=== PATIENT | female | born 1950 | race Caucasian/White ===

== ENCOUNTER → 2017-11-19 | Emergency (ER) | payer OTHER ==
[~2017-11-19] VITALS: Ht 162.6 cm; Wt 86.2 kg
[~2017-11-19] MED LIST: ASA81 MG PO; CIPRO500 MG PO; COUMADIN5 MG; FLAGYL500MG PO; LOSARTAN-HCTZ1 EAC1; ZANTAC300 MG PO
== END | disposition home or self-care (01) ==
LOC: ER 17:27
DX: K29.70 Gastritis, unspecified, without bleeding (principal)

== ENCOUNTER 2019-04-18 08:32 | Emergency (ER) | payer OTHER ==
[~2019-04-18] VITALS: Ht 162.6 cm; Wt 78.0 kg
[2019-04-18] MEDS ORDERED: FORTAMET1000 MG (09:21)
[2019-04-18] MEDS ORDERED: ASPIR 8181 MG (09:21)
[2019-04-18] MEDS ORDERED: HUMULIN N100 UNIT/2 (09:21)
[2019-04-18] MEDS ORDERED: TOPROL XL50 M1 (09:21)
[2019-04-18] MEDS ORDERED: XOLEGEL45 GM TOP (10:57)
[2019-04-18] MEDS ORDERED: CORTIZONE 1028 GM TOP (10:57)
== END 2019-04-18 11:04 | disposition home or self-care (01) ==
LOC: ER 08:32
DX: R60.0 Localized edema (principal); N18.9 Chronic kidney disease, unspecified; R21 Rash and other nonspecific skin eruption

== ENCOUNTER 2022-07-25 06:23 | Inpatient (IN) | payer OTHER ==
[~2022-07-25] VITALS: Ht 165.1 cm; Wt 81.2 kg
[~2022-07-25 06:23] MED LIST changes: +AMLODIPINE BESYL5 MG PO; +ASPIR 8181 MG; +CORTIZONE 1028 GM TOP; +ELIQUIS5 MG PO; +FORTAMET1000 MG; +HUMULIN N100 UNIT/2; +ISOSORBIDE MONO30 MG PO; +JENTADUETO 2.51 EAC2 PO; +LANTUS SOL100 UNIT/1 SQ; +LOSARTAN POTAS100 MG PO; +METOPROLOL TAR100 MG PO; +SPIRONOLACTONE25 MG PO; +TOPROL XL50 M1; +XOLEGEL45 GM TOP; +ZOCOR20 MG PO
[2022-07-25] MEDS ORDERED: HUMULIN 70100 UNIT/2 (16:41)
[2022-07-25] MEDS ORDERED: TORSEMIDE20 MG (16:41)
[2022-07-25] MEDS ORDERED: GABAPENTIN800 M1 (16:41)
[2022-07-25] MEDS ORDERED: ATORVASTATIN CA20 MG (16:41)
[2022-07-25] MEDS ORDERED: ALLOPURINOL100 MG (16:41)
[2022-07-25] MEDS ORDERED: CLOPIDOGREL BIS75 MG (16:41)
[2022-07-25] MEDS ORDERED: FUROSEMIDE40 MG (16:41)
[2022-07-25] MEDS ORDERED: NIFEDIPINE ER30 MG (16:41)
[2022-07-25] MEDS ORDERED: OMEPRAZOLE40 MG (16:41)
== END 2022-07-31 17:59 | disposition home or self-care (01) | DRG 389 ==
LOC: ER 06:23 → SEC-K 15:33 → MEDI 15:33
PROVIDERS: ADMIT Internal Medicine; ATTEND Internal Medicine
PROC: 0D9670Z Drainage of Stomach with Drainage Device, Via Natural or Artificial Opening (ICD-10-PCS; principal; 2022-07-25)
PROC: BW2110Z Computerized Tomography (CT Scan) of Abdomen and Pelvis using Low Osmolar Contrast, Unenhanced and Enhanced (ICD-10-PCS; 2022-07-25)
PROC: 02HV33Z Insertion of Infusion Device into Superior Vena Cava, Percutaneous Approach (ICD-10-PCS; 2022-07-30)
DX: K56.600 Partial intestinal obstruction, unspecified as to cause (principal); N17.9 Acute kidney failure, unspecified; R18.8 Other ascites; I12.9 Hypertensive chronic kidney disease with stage 1 through stage 4 chronic kidney disease, or unspecified chronic kidney disease; E11.22 Type 2 diabetes mellitus with diabetic chronic kidney disease; N18.9 Chronic kidney disease, unspecified; E86.0 Dehydration; I48.91 Unspecified atrial fibrillation

== ENCOUNTER 2022-10-24 13:42 | Inpatient (IN) | payer OTHER ==
[~2022-10-24] VITALS: Ht 157.5 cm; Wt 77.1 kg
[~2022-10-24 13:42] MED LIST changes: +ALLOPURINOL100 MG; +ATORVASTATIN CA20 MG; +CLOPIDOGREL BIS75 MG; +FUROSEMIDE40 MG; +GABAPENTIN800 M1; +HUMULIN 70100 UNIT/2; +NIFEDIPINE ER30 MG; +OMEPRAZOLE40 MG; +TORSEMIDE20 MG
--- NOTE | 2022-10-24 13:53 | NUR ---
PACIENTE LLEGA BRAD DE EMERGENCIAS POR DIFICULTAD AL RESPIRAR Y DOLOR DE PECHO, SE LE REALIZA EKG Y SIGNOS VITALES, PRESENTA SATURACION EN 88%.
--- NOTE | 2022-10-24 14:18 | NUR ---
PACIENTE ES MANEJADA EN AREA DE CHESTA PAIN DE MANERA INMEDIATA. PACIENTE AL MOMENTO ES CONECTADA A MONITOR CARDIACO OXIMETRIA DE PUSLO, SE REALIZA CANALIZACIONDE VENA CON ANGIO NEMERO 20#. PACIENTE CON SALIN LOCK, CANULA DE OXIGENO, SE REALIZO INSERCION DE SAMSON CATETER Y SE REALIZARON GASES ALTERIALES.
--- NOTE | 2022-10-24 15:04 | NUR ---
1500 SE RECIBE PTE ALERTA Y ORIENTADA EN COMPANIA DE FAMILIAR, PTE RESPONDE A ESTIMULO DE DOLOR AL MOMENTO SE ENCUENTRA EN POSICION SEMIFOWLER. PTE TIENE UN BIPAD PIP14 FIO2 100% MAP 9.7. PTE VENOPUNCION #20 BRAZO ARNIE CON SALIN LOCK. SE OBSERVAN AMBAS EXTREMIDADES DE [place] EDEMATOSAS Y AMBAS EXTREMIDADES DE [place] HINCHADO. SE OBSERVA ESTOMAGO DEPRESIBLE Y BLANDO A TACTO. PTE AL MOMENTO TIENE SAMSON AL MOMENTO ESTA DRENANDO AMARILLO INTENSO 20ML. 1517: SE NOTIFICA VALOR PANICO DE TROPONINAS DE [address] WEAVER.
== END 2022-11-03 17:25 | disposition home or self-care (01) | DRG 280 ==
LOC: ER 13:42 → ICU-2 18:24 → MEDI 10-28 16:59
PROVIDERS: ADMIT Internal Medicine; ATTEND Internal Medicine
PROC: 5A09457 Assistance with Respiratory Ventilation, 24-96 Consecutive Hours, Continuous Positive Airway Pressure (ICD-10-PCS; principal; 2022-10-24)
PROC: 4A12X4Z Monitoring of Cardiac Electrical Activity, External Approach (ICD-10-PCS; 2022-10-24)
PROC: B24BYZZ Ultrasonography of Heart with Aorta using Other Contrast (ICD-10-PCS; 2022-10-24)
PROC: 3E0F7SF Introduction of Other Gas into Respiratory Tract, Via Natural or Artificial Opening (ICD-10-PCS; 2022-10-26)
PROC: 5A0945A Assistance with Respiratory Ventilation, 24-96 Consecutive Hours, High Flow/Velocity Cannula (ICD-10-PCS; 2022-10-28)
PROC: 30233N1 Transfusion of Nonautologous Red Blood Cells into Peripheral Vein, Percutaneous Approach (ICD-10-PCS; 2022-11-01)
DX: I13.0 Hypertensive heart and chronic kidney disease with heart failure and stage 1 through stage 4 chronic kidney disease, or unspecified chronic kidney disease (principal); I50.23 Acute on chronic systolic (congestive) heart failure; I48.20 Chronic atrial fibrillation, unspecified; I21.A1 Myocardial infarction type 2; J96.92 Respiratory failure, unspecified with hypercapnia; I16.1 Hypertensive emergency; E87.29 Other acidosis; N17.9 Acute kidney failure, unspecified; N18.9 Chronic kidney disease, unspecified; D63.1 Anemia in chronic kidney disease; E11.22 Type 2 diabetes mellitus with diabetic chronic kidney disease; Z79.4 Long term (current) use of insulin

== ENCOUNTER 2022-12-21 12:35 | Inpatient (IN) | payer OTHER ==
[~2022-12-21] VITALS: Ht 160 cm; Wt 77.1 kg
--- NOTE | 2022-12-21 12:56 | NUR ---
PTE REFIERE DOLOR DE PECHO Y FALTA DE AIRE, SE ACOMDA EN CRITICO . SE LE NOTIFICA A EL YULIET GUTIERREZ.
--- NOTE | 2022-12-21 13:50 | NUR ---
SE COLOCA PACIENTE EN ICU 2, SE CONECTA A MONITOR CARDIACO CON SATUROMETRO. SE ORIENTA DE NORMAS DEL AREA Y CONTINUIDAD DE TRATAMIENTO, REFIERE ENTENDER. SE CANALIZA CON ANGIO #22 EN MANO DERECHA Y ANGIO #22 EN BRAZO IZQ. Y SE REALIZAN MUESTRAS TODO CON MEDIDAS ASEPTICAS CORRESPONDIENTES. SE ADMINISTRAN MEDICAMENTOS POR RN E DAMON CON MEDIDAS ASEPTICAS CORRESPONDIENTES. SE INSERTA SAMSON POR ORDEN DE DR HORVATH, SE UTILIZAN MEDIDAS ASEPTICAS CORRESPONDIENTES DRENANDO SHAYNE MCKEON SAMSON PATENTE A GRAVEDAD. BARANDAS ELEVADAS POR CHAKRABORTY SEGURIDAD. SE ENTREGA A BRITTNY OSWALD DE ICU 2 PARA CONTINUIDAD DE TRATAMIENTO.
--- NOTE | 2022-12-21 15:07 | NUR ---
SE RECIBE PACIENTE ALERTA Y ORIENTADA X3. LA MISMA ESTA EN DESCANSO EN CAMA CON LA CABCERA A 30 GRADOS. LA MISMA ESTA CANALIZADA EN MANO DERECHA Y BARAOZ ARNIE PATNETE Y BILL DE DOLOR BAJANDO CON UN 0.9NSS @ 100 ML/HR Y CARDIZEM 100 MG/100 ML @ 5 ML/HR. CANULA NASAL A 2 L/MIN. SAMSON DRENANDO A GRAVEDAD PRESENTANDO ORINA AMARILLA LUTHER. EDEMA EN AMBAS PIERNAS
--- NOTE | 2022-12-21 15:09 | NUR ---
PENDIENTE A SEGUNDAS TROPONINAS Y REPETIR EKG
== END 2022-12-27 16:14 | disposition home or self-care (01) | DRG 291 ==
LOC: ER 12:35 → MEDJ 17:16 → ICU-2 17:16 → MEDJ 12-22 09:55
PROVIDERS: ADMIT Internal Medicine; ATTEND Internal Medicine
PROC: 4A12X4Z Monitoring of Cardiac Electrical Activity, External Approach (ICD-10-PCS; principal; 2022-12-21)
PROC: B24BZZZ Ultrasonography of Heart with Aorta (ICD-10-PCS; 2022-12-22)
DX: I13.0 Hypertensive heart and chronic kidney disease with heart failure and stage 1 through stage 4 chronic kidney disease, or unspecified chronic kidney disease (principal); I50.33 Acute on chronic diastolic (congestive) heart failure; N17.9 Acute kidney failure, unspecified; I48.91 Unspecified atrial fibrillation; N18.30 Chronic kidney disease, stage 3 unspecified; E11.8 Type 2 diabetes mellitus with unspecified complications

== ENCOUNTER 2023-12-24 21:13 | Emergency (ER) | payer OTHER ==
[~2023-12-24] VITALS: Ht 162.6 cm; Wt 77.1 kg
[2023-12-24] MEDS ORDERED: FAMOTIDINE/PF 20 MG/2 ML VIAL IV PUSH ONE (23:30)
[2023-12-24] MEDS ORDERED: HYOSCYAMINE SULFATE 0.125 MG TAB.SUBL SL ONE (23:30)
[2023-12-24] MEDS ORDERED: ONDANSETRON HCL 2 MG/ML VIAL IV ONE (23:30)
[2023-12-25 00:48] LABS: HEMATOCRIT 31.2 % (36.0-45.00); MEAN CELL VOLUME 84.1 fL (80.00-100.00); MEAN CORPUSCULAR HGB CONC 33.2 g/dl (32.0-36.0); PLATELET COUNT 351 K/uL (150-450); RED CELL DISTRIBUTION WIDTH 16.1 % (11.5-14.5)
[2023-12-25 01:07] LABS: HEMOGLOBIN 10.3 g/dL (12.0-15.00); MEAN CORPUSCULAR HEMOGLOBIN 27.8 pg (27.00-32.0)
[2023-12-25 01:27] LABS: ALBUMIN 3.4 gm/dL (3.4-5.0); BILIRUBIN TOTAL 0.29 mg/dL (0.3-1.2); CALCIUM 9.5 mg/dL (8.5-10.1); CREATININE SERUM 1.96 mg/dL (0.55-1.02); GFR 24.93; GLOBULINA 3.8 G/DL (2.4-3.5); POTASSIUM 5.65 mEq/L (3.5-5.1); TOTAL PROTEIN 7.2 gm/dL (6.4-8.2)
[2023-12-25] MEDS ORDERED: KETOROLAC TROMETHAMINE 30 MG VIAL IV STA (04:57)
[2023-12-25] MEDS ORDERED: HYOSCYAMINE SULFATE 0.125 MG TAB.SUBL SL STA (04:58)
[2023-12-25] MEDS ORDERED: MEPERIDINE HCL/PF 25 MG/ML VIAL IM STA (04:58)
[2023-12-25] MEDS ORDERED: PROMETHAZINE HCL 25 MG/ML AMPUL IM STA (04:59)
== END 2023-12-25 07:31 | disposition home or self-care (01) ==
LOC: ER 21:14
PROVIDERS: General Practice
DX: K29.70 Gastritis, unspecified, without bleeding (principal)
CPT/HCPCS: 36415; 96365; 99283; J1885; J3490

== ENCOUNTER 2025-04-16 14:51 | Inpatient (IN) | payer OTHER ==
[~2025-04-16] VITALS: Ht 157.5 cm; Wt 77.1 kg
--- NOTE | 2025-04-16 15:47 | NUR ---
PACIENTE FEMINA ALERTA Y ORIENTADA X3 EN COMPANIA DE FAMILIAR QUIEN REFIERE PACIENTE LA TAMEKA CON DOLOR EN COSTADO IZUIQERDO Y SE IRRADIA HACIA ABDOMEN Y POCO HACIA EL HOMBRO. SE VERIFICAN EXTREMIDADES INFERIORES S EOBSERVA UN POCO DE RETENCION DE LIQUIDO. SE REALIZA EKG Y SE PRESENTA A DR. NOLAN
[2025-04-16] MEDS ORDERED: FAMOTIDINE/PF 20 MG/2 ML VIAL ONE (16:44)
[2025-04-16] MEDS ORDERED: KETOROLAC TROMETHAMINE 30 MG VIAL ONE (16:44)
[2025-04-16] MEDS ORDERED: 0.9 % SODIUM CHLORIDE 1,000 ML IV ONE (16:45)
[2025-04-16] MEDS ORDERED: KETOROLAC TROMETHAMINE 30 MG VIAL IV ONE (16:45)
[2025-04-16] MEDS ORDERED: FAMOtidine 10 MG/ML (4ML VIAL) IV ONE (16:45)
[2025-04-16] MEDS ORDERED: BARIUM SULFATE 450 ML ORAL.SUSP PO ONE (17:26)
[2025-04-16 18:10] LABS: BASO % 0.3 % (0.1-1.2); EOS # 0.01 (0.04-0.54); EOS % 0.0 % (0.7-7.0); LYMPH # 0.46 (1.18-3.74); LYMPH % 1.9 % (19.3-53.1); MEAN PLATELET VOLUME 9.80 fl (9.4-12.4); MONO # 0.96 (0.24-0.82); MONO % 4.0 % (4.7-12.5); NEUT # 22.19 (1.56-6.13); NEUT % 93.0 % (34.0-71.1); RED CELL DISTRIBUTION WIDTH 14.4 % (11.6-14.4)
[2025-04-16 18:36] LABS: ALT/SGPT 18.0 U/L (12-78); AST/SGOT 17.0 U/L (15-37); BILIRUBIN TOTAL 1.22 mg/dL (0.3-1.2); BUN CREA RATIO 14.0 (7.0-25.0); CREATININE SERUM 2.07 mg/dL (0.55-1.02); GFR 23.34; GLOBULINA 4.3 G/DL (2.4-3.5); GLUCOSE FASTING 190.0 mg/dL (65-100); OSMOLALITY SERUM 294.0 MOSM/KG (275-295)
[2025-04-16 18:39] LABS: INR 1.11
[2025-04-16] MEDS ORDERED: MORPHINE SULFATE 4 MG/ML CARTRIDGE IV ONE (19:45)
[2025-04-16 20:24] LABS: URINE APPEARANCE Turbid; URINE BACTERIA 681.7 uL (0.0-1933); URINE BILIRRUBIN Negative (NEGATIVE); URINE BLOOD Small; URINE COLOR Yellow; URINE EPITHELIAL CELLS 29.9 uL (0.0-38.8); URINE KETONE Trace (NEGATIVE); URINE LEUKOCYTE Trace; URINE NITRATE Negative; URINE PROTEIN >=1000 (NEGATIVE); URINE RBC 17.0 uL (0.0-20.8); URINE UROBILINOGEN 0.2 E.U./dl; URINE WBC 275.4 uL (0.0-23.2)
[2025-04-16] MEDS ORDERED: PIPERACILLIN/TAZOBACTAM SODIUM 3.375 GM VIAL IV ONE ×2 (20:45→20:52)
[2025-04-16 21:03] LABS: URINE CAST > 21.83 uL (0.0-1.40); URINE GLUCOSE 250 MG/DL (NEGATIVE)
[2025-04-16 21:36] LABS: TYPE CELLS RENAL TUBULAR; URINE CRYSTALS MODERATE /HPF
[2025-04-16] MEDS ORDERED: ONDANSETRON HCL 2 MG/ML VIAL ONE (22:10)
[2025-04-16] MEDS ORDERED: ONDANSETRON HCL 2 MG/ML VIAL IV ONE (22:15)
[2025-04-16] MEDS ORDERED: 0.9 % SODIUM CHLORIDE 1,000 ML IV SCH (22:45)
[2025-04-16] MEDS ORDERED: IPRATROPIUM BROMIDE 0.5 MG/2.5 ML AMPUL.NEB IH SCH (22:46)
[2025-04-16] MEDS ORDERED: LEVALBUTEROL HCL 1.25 MG/3 ML SOLUTION IH SCH (22:46)
[2025-04-16] MEDS ORDERED: CEFTRIAXONE SODIUM 2,000 MG in 0.9 % SODIUM CHLORIDE 100 ML IV SCH (22:52)
[2025-04-16] MEDS ORDERED: AZITHROMYCIN 500 MG in DEXTROSE 5 % IN WATER 250 ML IV SCH (22:52)
[2025-04-16] MEDS ORDERED: INSULIN LISPRO 1,000 UNIT/10 ML UNITS SUBCUTANEO PRN (23:00)
[2025-04-16] MEDS ORDERED: SODIUM POLYSTYRENE SULFONATE 30G/8 TSP PO ONE (23:00)
[2025-04-16] MEDS ORDERED: DEXTROSE 50 % IN WATER 0.5 G/ML DISP.SYRIN IV PRN (23:00)
[2025-04-16] MEDS ORDERED: ACETAMINOPHEN 500 MG GEL..CAP PO PRN (23:00)
[2025-04-17 01:52] LABS: INR 1.26
[2025-04-17 03:02] VITALS: BP 139/85; O2SAT 90
[2025-04-17] MEDS ORDERED: APIXABAN 5 MG TABLET PO SCH (05:00)
[2025-04-17] MEDS ORDERED: FAMOTIDINE/PF 20 MG in 0.9 % SODIUM CHLORIDE 8 ML IV PUSH SCH (09:00)
[2025-04-17] MEDS ORDERED: METOPROLOL SUCCINATE 50 MG TAB.SR.24H PO SCH (09:00)
[2025-04-17] MEDS ORDERED: ISOSORBIDE MONONITRATE 30 MG TABLET PO SCH (09:00)
[2025-04-17 12:24] LABS: COVID-19 AG NEGATIVE (NEGATIVE)
[2025-04-17 13:39] LABS: ABG PH 7.339 (7.35-7.45); ABG PO2 145.4 mmHg (80-100); BICARBONATE 14.9 mmol/l (23-25)
[2025-04-17 13:48] LABS: o2 28 %
[2025-04-17 16:55] VITALS: BP 130/80; O2SAT 95
[2025-04-17] MEDS ORDERED: AZITHROMYCIN 500 MG VIAL IV ONE (19:08)
[2025-04-17 19:35] LABS: MYCOPLASMA PNEUMONIAE IGM NON REACTIVE (NO REACTIVE)
[2025-04-17] MEDS ORDERED: AZITHROMYCIN 500 MG VIAL IV SCH (21:00)
[2025-04-18 02:46] VITALS: BP 129/71; O2SAT 96
[2025-04-18 07:58] LABS: BASO % 0.2 % (0.1-1.2); EOS # 0.40 (0.04-0.54); EOS % 2.2 % (0.7-7.0); LYMPH # 0.97 (1.18-3.74); LYMPH % 5.4 % (19.3-53.1); MEAN PLATELET VOLUME 10.40 fl (9.4-12.4); MONO # 0.92 (0.24-0.82); MONO % 5.1 % (4.7-12.5); NEUT # 15.44 (1.56-6.13); NEUT % 86.4 % (34.0-71.1); RED CELL DISTRIBUTION WIDTH 14.8 % (11.6-14.4)
[2025-04-18] MEDS ORDERED: LACTOBACILLUS ACIDOPHILUS 1 CAP CAP PO SCH (09:00)
[2025-04-18 09:16] VITALS: BP 140/69; O2SAT 98
[2025-04-18 18:23] VITALS: BP 174/98; O2SAT 99
[2025-04-18] MEDS ORDERED: INSULIN LISPRO 1,000 UNIT/10 ML UNITS SUBCUTANEO PRN (22:00)
[2025-04-19 02:02] VITALS: BP 146/75; O2SAT 100
[2025-04-19 09:56] VITALS: BP 158/88; O2SAT 98
[2025-04-19 18:06] VITALS: BP 150/98; O2SAT 96
[2025-04-19] MEDS ORDERED: DOCUSATE SODIUM 100MG CAP PO SCH (21:00)
[2025-04-20] VITALS (10 sets, daily range): BP systolic 110–167; BP diastolic 84–100; O2SAT 91–100
[2025-04-20] MEDS ORDERED: CLONIDINE HCL 0.1 MG TABLET PO PRN (02:15)
[2025-04-20 06:37] LABS: BASO % 0.5 % (0.1-1.2); EOS # 0.07 (0.04-0.54); EOS % 0.5 % (0.7-7.0); LYMPH # 0.62 (1.18-3.74); LYMPH % 4.1 % (19.3-53.1); MEAN PLATELET VOLUME 10.80 fl (9.4-12.4); MONO # 0.71 (0.24-0.82); MONO % 4.6 % (4.7-12.5); NEUT # 13.71 (1.56-6.13); NEUT % 89.5 % (34.0-71.1); RED CELL DISTRIBUTION WIDTH 15.4 % (11.6-14.4)
[2025-04-20 06:47] LABS: ALT/SGPT 21.0 U/L (12-78); AST/SGOT 16.0 U/L (15-37); BILIRUBIN TOTAL 0.52 mg/dL (0.3-1.2); BUN CREA RATIO 12.0 (7.0-25.0); CREATININE SERUM 3.62 mg/dL (0.55-1.02); GFR 12.25; GLOBULINA 3.8 G/DL (2.4-3.5); GLUCOSE FASTING 199.0 mg/dL (65-100); OSMOLALITY SERUM 300.0 MOSM/KG (275-295)
[2025-04-20] MEDS ORDERED: NITROGLYCERIN IN 5 % DEXTROSE 250 ML IV SCH (07:15)
[2025-04-20] MEDS ORDERED: SODIUM POLYSTYRENE SULFONATE 30G/8 TSP PO SCH (09:00)
[2025-04-20 09:32] LABS: ABG PH 7.228 (7.35-7.45)
[2025-04-20 09:33] LABS: ABG PO2 271.6 mmHg (80-100); BICARBONATE 16.2 mmol/l (23-25)
[2025-04-20 09:34] LABS: o2 100 %
[2025-04-20] MEDS ORDERED: BUMETANIDE 2.5 MG/10 ML VIAL IV ONE (11:00)
[2025-04-20] MEDS ORDERED: HEPARIN SODIUM,PORCINE 5,000 UNITS/ML VIAL IV ONE (12:30)
[2025-04-20] MEDS ORDERED: LIDOCAINE HCL 1% 10ML VIAL IJ ONE (12:30)
[2025-04-20] MEDS ORDERED: LEVALBUTEROL HCL 1.25 MG/3 ML SOLUTION IH SCH (14:00)
[2025-04-20] MEDS ORDERED: HEPARIN SODIUM,PORCINE 5,000 UNITS/ML VIAL IV PRN (18:00)
[2025-04-21] VITALS (11 sets, daily range): BP systolic 112–198; BP diastolic 57–93; O2SAT 90–99
[2025-04-21 06:48] LABS: BASO % 0.8 % (0.1-1.2); EOS # 0.39 (0.04-0.54); EOS % 4.6 % (0.7-7.0); LYMPH # 0.94 (1.18-3.74); LYMPH % 11.2 % (19.3-53.1); MEAN PLATELET VOLUME 10.40 fl (9.4-12.4); MONO # 0.72 (0.24-0.82); MONO % 8.6 % (4.7-12.5); NEUT # 6.19 (1.56-6.13); NEUT % 73.7 % (34.0-71.1); RED CELL DISTRIBUTION WIDTH 14.4 % (11.6-14.4)
[2025-04-21 07:12] LABS: BUN CREA RATIO 10.0 (7.0-25.0); CREATININE SERUM 2.42 mg/dL (0.55-1.02); GFR 19.49; GLUCOSE FASTING 114.0 mg/dL (65-100); OSMOLALITY SERUM 277.0 MOSM/KG (275-295)
[2025-04-21] MEDS ORDERED: DEXTROSE 50 % IN WATER 0.5 G/ML VIAL IV PRN (14:15)
[2025-04-22] VITALS (10 sets, daily range): BP systolic 146–190; BP diastolic 84–125; O2SAT 90–100
[2025-04-22] MEDS ORDERED: HEPARIN SODIUM,PORCINE 5,000 UNITS/ML VIAL IV NR (18:45)
[2025-04-23] VITALS (9 sets, daily range): BP systolic 160–180; BP diastolic 80–100; O2SAT 90–98
[2025-04-23] MEDS ORDERED: AMLODIPINE BESYLATE 5 MG TABLET PO SCH (09:00)
[2025-04-23 13:39] LABS: ABG PH 7.405 (7.35-7.45); ABG PO2 84.2 mmHg (80-100); BICARBONATE 20.3 mmol/l (23-25)
[2025-04-23 14:00] LABS: o2 21 %
[2025-04-24] VITALS (8 sets, daily range): BP systolic 145–173; BP diastolic 82–96; O2SAT 90–97
[2025-04-24 05:39] LABS: BASO % 0.7 % (0.1-1.2); EOS # 0.39 (0.04-0.54); EOS % 5.4 % (0.7-7.0); LYMPH # 1.18 (1.18-3.74); LYMPH % 16.3 % (19.3-53.1); MEAN PLATELET VOLUME 9.60 fl (9.4-12.4); MONO # 1.11 (0.24-0.82); NEUT # 4.21 (1.56-6.13); NEUT % 58.2 % (34.0-71.1); RED CELL DISTRIBUTION WIDTH 14.3 % (11.6-14.4)
[2025-04-24 06:24] LABS: ERYTHROCYTE SEDIMENTATION RATE 68 mm/hr (0-30)
[2025-04-24 06:30] LABS: ALT/SGPT 16.0 U/L (12-78); AST/SGOT 10.0 U/L (15-37); BILIRUBIN TOTAL 0.28 mg/dL (0.3-1.2); BUN CREA RATIO 7.0 (7.0-25.0); CREATININE SERUM 2.45 mg/dL (0.55-1.02); GFR 19.22; GLOBULINA 3.2 G/DL (2.4-3.5); GLUCOSE FASTING 160.0 mg/dL (65-100); OSMOLALITY SERUM 290.0 MOSM/KG (275-295)
[2025-04-24 07:26] LABS: EOSINOPHIL MAN 6.0 %; LYMPHOCYTE MAN 18.0 %; MONO % 15.4 % (4.7-12.5); MONOCYTE MAN 16.0 %; NEUTROPHILS MAN 59.0 %
[2025-04-24] MEDS ORDERED: INSULIN GLARGINE,HUM.REC.ANLOG 1,000 UNITS/10 ML UNITS SUBCUTANEO SCH (09:00)
[2025-04-25] VITALS (8 sets, daily range): BP systolic 136–148; BP diastolic 68–80; O2SAT 93–99
[2025-04-25 08:26] LABS: ALT/SGPT 15.0 U/L (12-78); AST/SGOT 13.0 U/L (15-37); BILIRUBIN TOTAL 0.28 mg/dL (0.3-1.2); BUN CREA RATIO 5.0 (7.0-25.0); CREATININE SERUM 2.29 mg/dL (0.55-1.02); GFR 20.77; GLOBULINA 3.4 G/DL (2.4-3.5); GLUCOSE FASTING 155.0 mg/dL (65-100); OSMOLALITY SERUM 280.0 MOSM/KG (275-295)
[2025-04-26] VITALS (9 sets, daily range): BP systolic 130–169; BP diastolic 71–81; O2SAT 93–99
[2025-04-27] VITALS (9 sets, daily range): BP systolic 147–182; BP diastolic 69–90; O2SAT 90–99
[2025-04-27 06:28] LABS: BASO % 0.9 % (0.1-1.2); EOS # 0.22 (0.04-0.54); EOS % 3.4 % (0.7-7.0); LYMPH # 0.83 (1.18-3.74); LYMPH % 12.8 % (19.3-53.1); MEAN PLATELET VOLUME 9.90 fl (9.4-12.4); MONO # 0.72 (0.24-0.82); MONO % 11.1 % (4.7-12.5); NEUT # 4.54 (1.56-6.13); NEUT % 70.1 % (34.0-71.1); RED CELL DISTRIBUTION WIDTH 14.9 % (11.6-14.4)
[2025-04-27 06:43] LABS: ALT/SGPT 11.0 U/L (12-78); AST/SGOT 10.0 U/L (15-37); BILIRUBIN TOTAL 0.25 mg/dL (0.3-1.2); BUN CREA RATIO 6.0 (7.0-25.0); CREATININE SERUM 3.42 mg/dL (0.55-1.02); GFR 13.08; GLOBULINA 3.2 G/DL (2.4-3.5); GLUCOSE FASTING 166.0 mg/dL (65-100); OSMOLALITY SERUM 286.0 MOSM/KG (275-295)
[2025-04-27] MEDS ORDERED: INSULIN LISPRO 1,000 UNIT/10 ML UNITS SUBCUTANEO SCH (08:00)
[2025-04-28] VITALS (9 sets, daily range): BP systolic 118–138; BP diastolic 64–75; O2SAT 95–98
[2025-04-28] MEDS ORDERED: ACETAMINOPHEN 500 MG GEL..CAP PO PRN (16:45)
[2025-04-28] MEDS ORDERED: ZOLPIDEM TARTRATE 5 MG TABLET PO SCH (21:00)
[2025-04-29] VITALS (9 sets, daily range): BP systolic 115–174; BP diastolic 64–73; O2SAT 94–98
[2025-04-30] VITALS (9 sets, daily range): BP systolic 89–102; BP diastolic 57–72; O2SAT 93–99
[2025-04-30] MEDS ORDERED: INSULIN LISPRO 1,000 UNIT/10 ML UNITS SUBCUTANEO SCH (08:00)
[2025-05-01] VITALS (7 sets, daily range): BP systolic 119–150; BP diastolic 59–65; O2SAT 96–99
[2025-05-01] MEDS ORDERED: INSULIN LI100 UNIT/1 SUBCUTANEO (14:04)
[2025-05-01] MEDS ORDERED: Lantus 1000 UNITS/10 SUBCUTANEO (14:04)
[2025-05-01] MEDS ORDERED: ELIQUIS5 MG PO (14:04)
[2025-05-01] MEDS ORDERED: COLACE100 MG PO (14:04)
[2025-05-01] MEDS ORDERED: ZOLPIDEM TARTRAT5 MG PO (14:04)
[2025-05-01] MEDS ORDERED: TOPROL XL50 M1 PO (14:04)
[2025-05-01] MEDS ORDERED: HYDRALAZINE HCL50 MG PO (14:04)
[2025-05-01] MEDS ORDERED: FAMOTIDINE20 MG PO (14:04)
[2025-05-01] MEDS ORDERED: ISOSORBIDE MONO30 MG PO (14:04)
[2025-05-01] MEDS ORDERED: ALLOPURINOL100 MG PO (14:04)
[2025-05-01] MEDS ORDERED: AMLODIPINE BESYL5 MG PO (14:04)
== END 2025-05-01 17:54 | disposition home or self-care (01) | DRG 193 ==
LOC: ER 15:45 → MEDI 22:56 → MEDJ 22:56 → MEDI 04-29 13:56
PROVIDERS: General Practice; Internal Medicine; Internal Medicine Infectious Disease; Internal Medicine Nephrology; ADMIT Internal Medicine; ATTEND Internal Medicine
PROC: BW21ZZZ Computerized Tomography (CT Scan) of Abdomen and Pelvis (ICD-10-PCS; 2025-04-16)
PROC: BW24ZZZ Computerized Tomography (CT Scan) of Chest and Abdomen (ICD-10-PCS; 2025-04-16)
PROC: 3E0F7GC Introduction of Other Therapeutic Substance into Respiratory Tract, Via Natural or Artificial Opening (ICD-10-PCS; 2025-04-16)
PROC: 30233N1 Transfusion of Nonautologous Red Blood Cells into Peripheral Vein, Percutaneous Approach (ICD-10-PCS; 2025-04-19)
PROC: 06HM33Z Insertion of Infusion Device into Right Femoral Vein, Percutaneous Approach (ICD-10-PCS; principal; 2025-04-20)
PROC: 4A12X4Z Monitoring of Cardiac Electrical Activity, External Approach (ICD-10-PCS; 2025-04-20)
PROC: BT4JZZZ Ultrasonography of Kidneys and Bladder (ICD-10-PCS; 2025-04-20)
PROC: 5A09457 Assistance with Respiratory Ventilation, 24-96 Consecutive Hours, Continuous Positive Airway Pressure (ICD-10-PCS; 2025-04-20)
PROC: 05HM33Z Insertion of Infusion Device into Right Internal Jugular Vein, Percutaneous Approach (ICD-10-PCS; 2025-04-29)
PROC: 06PYX3Z Removal of Infusion Device from Lower Vein, External Approach (ICD-10-PCS; 2025-04-29)
PROC: 5A1D70Z Performance of Urinary Filtration, Intermittent, Less than 6 Hours Per Day (ICD-10-PCS; 2025-04-30)
DX: J18.9 Pneumonia, unspecified organism (principal); A41.9 Sepsis, unspecified organism; N18.6 End stage renal disease; E87.20 Acidosis, unspecified; I13.0 Hypertensive heart and chronic kidney disease with heart failure and stage 1 through stage 4 chronic kidney disease, or unspecified chronic kidney disease; N17.9 Acute kidney failure, unspecified; I50.30 Unspecified diastolic (congestive) heart failure; E86.0 Dehydration; I48.91 Unspecified atrial fibrillation; E11.22 Type 2 diabetes mellitus with diabetic chronic kidney disease; Z79.4 Long term (current) use of insulin; E66.01 Morbid (severe) obesity due to excess calories; E11.65 Type 2 diabetes mellitus with hyperglycemia; I27.20 Pulmonary hypertension, unspecified; E87.5 Hyperkalemia; D64.9 Anemia, unspecified